=== PATIENT | female | born 1955 | race Two or more races ===

== ENCOUNTER 2018-03-09 12:15 | Inpatient (IN) | payer OTHER ==
[~2018-03-09] VITALS: Ht 160 cm; Wt 83.0 kg
[~2018-03-09 12:15] MED LIST: DOLOGEN CAPLET1 EACH PO
[2018-03-09] MEDS ORDERED: FORTAMET1000 MG PO (14:43)
[2018-03-09] MEDS ORDERED: PROTONIX40 M1 PO (14:44)
[2018-03-09] MEDS ORDERED: COZAAR100 MG PO (14:44)
[2018-03-09] MEDS ORDERED: CARVEDILOL ER10 MG PO (14:45)
[2018-03-09] MEDS ORDERED: ZANTAC150 M3 PO (14:45)
[2018-03-12] MEDS ORDERED: GABAPENTIN800 MG PO (09:49)
[2018-03-12] MEDS ORDERED: DOCUSATE SODIU100 MG PO (09:49)
[2018-03-12] MEDS ORDERED: AMOX-CLAV 875-1 EACH PO (09:50)
[2018-03-12] MEDS ORDERED: PERCOCET 5-3251 EACH PO (09:50)
[2018-03-12] MEDS ORDERED: CLONAZEPAM1 MG PO (09:50)
== END 2018-03-12 15:22 | disposition home or self-care (01) | DRG 460 ==
LOC: O/R 03-11 05:50 → PED 03-11 05:50 → SURG 03-11 12:15 → PED 03-11 15:39 → SURG 03-11 16:15 → PED 03-12 15:22
PROVIDERS: Orthopaedic Surgery Orthopaedic Surgery of the Spine
PROC: 0SG10AJ Fusion of 2 or more Lumbar Vertebral Joints with Interbody Fusion Device, Posterior Approach, Anterior Column, Open Approach (ICD-10-PCS; 2018-03-11)
PROC: 0ST20ZZ Resection of Lumbar Vertebral Disc, Open Approach (ICD-10-PCS; 2018-03-11)
PROC: 07DS3ZZ Extraction of Vertebral Bone Marrow, Percutaneous Approach (ICD-10-PCS; 2018-03-11)
PROC: 0SG10A0 Fusion of 2 or more Lumbar Vertebral Joints with Interbody Fusion Device, Anterior Approach, Anterior Column, Open Approach (ICD-10-PCS; principal; 2018-03-11 16:15)
DX: M47.896 Other spondylosis, lumbar region (principal); M48.061 Spinal stenosis, lumbar region without neurogenic claudication; M51.36 Other intervertebral disc degeneration, lumbar region; E11.9 Type 2 diabetes mellitus without complications; I10 Essential (primary) hypertension

== ENCOUNTER → 2020-08-15 | Outpatient (CLI) | payer OTHER ==
[~2020-08-15] MED LIST changes: +AMOX-CLAV 875-1 EACH PO; +CARVEDILOL ER10 MG PO; +CLONAZEPAM1 MG PO; +COZAAR100 MG PO; +DOCUSATE SODIU100 MG PO; +FORTAMET1000 MG PO; +GABAPENTIN800 MG PO; +PERCOCET 5-3251 EACH PO; +PROTONIX40 M1 PO; +ZANTAC150 M3 PO
== END | disposition home or self-care (01) ==
LOC: TOM 07:45
PROVIDERS: ATTEND Internal Medicine
DX: K57.30 Diverticulosis of large intestine without perforation or abscess without bleeding (principal); K44.9 Diaphragmatic hernia without obstruction or gangrene; K66.0 Peritoneal adhesions (postprocedural) (postinfection)